=== PATIENT | female | born 1955 | race Caucasian/White ===

== ENCOUNTER → 2017-05-26 | Outpatient (CLI) | payer BC ==
[~2017-05-26] VITALS: Ht 165.1 cm; Wt 102.0 kg
[~2017-05-26] MED LIST: ANTIVERT25 MG PO; EXCEDRIN MIGRA1 EAC3 PO; LOTENSIN40 MG PO; METFORMIN HCL500 M1 PO; MICROZIDE12.5 M1 PO; PROZAC40 MG PO; TOPAMAX50 MG PO; TYLENOL REGULA325 MG PO
[2017-05-26 11:13] LABS: POINT-OF-CARE METER ID UU14107333
== END | disposition home or self-care (01) ==
LOC: AMB 10:00
PROVIDERS: Internal Medicine
PROC: 0DBK8ZX Excision of Ascending Colon, Via Natural or Artificial Opening Endoscopic, Diagnostic (ICD-10-PCS; principal; 2017-05-26)
DX: D12.2 Benign neoplasm of ascending colon (principal); K64.8 Other hemorrhoids; K59.00 Constipation, unspecified; R19.5 Other fecal abnormalities; I10 Essential (primary) hypertension; F41.1 Generalized anxiety disorder; R73.03 Prediabetes; E66.9 Obesity, unspecified; Z68.37 Body mass index [BMI] 37.0-37.9, adult; Z80.0 Family history of malignant neoplasm of digestive organs; Z79.84 Long term (current) use of oral hypoglycemic drugs; Z88.0 Allergy status to penicillin; Z82.49 Family history of ischemic heart disease and other diseases of the circulatory system; Z82.5 Family history of asthma and other chronic lower respiratory diseases; Z83.511 Family history of glaucoma
CPT/HCPCS: 82948; 88305; 93005